=== PATIENT | female | born 1980 | race Caucasian/White ===

== ENCOUNTER 2016-09-03 15:22 | Emergency (ER) | payer BC, MEDICARE ==
[2016-09-03] MEDS ORDERED: MORPHINE 4 MG/ML SYR ONE (20:25)
[2016-09-03] MEDS ORDERED: SODIUM CHLORIDE 0.9% 1,000 ML ONE (20:25)
[2016-09-03] MEDS ORDERED: ONDANSETRON 4 MG VIAL ONE (20:25)
[2016-09-03] MEDS ORDERED: DILAUDID 1 MG/ML AMP ONE (21:23)
[2016-09-03] MEDS ORDERED: SODIUM CHLORIDE 0.9% 100 ML IV ONE (21:52)
[2016-09-03] MEDS ORDERED: CEFTRIAXONE 1 GM VIAL ONE (21:52)
== END 2016-09-03 23:06 | disposition home or self-care (01) ==
LOC: ER 15:22
CPT/HCPCS: 74176; 87077; 87186; 96361; 96365; 96375